=== PATIENT | female | born 1995 | race Asian ===

== ENCOUNTER 2017-09-12 19:55 | Emergency (ER) | payer BC ==
[2017-09-12] MEDS ORDERED: diazePAM 5 MG TAB PO ONE (20:12)
--- NOTE | 2017-09-12 20:16 | ED.PDOC ---
History of Present Illness - General Source: patient, RN notes reviewed, EMS notes reviewed Additional Information: Pt reports history of bipolar d/o. Pt reports a lot of stress recently. She had a reported seizure - first time ever per report. She said she still feels a little foggy but she is getting better. I did not appreciate a definite post- ictal appearance. Pt alert, oriented, in no distress. Pt with some mild tachycardia with HR around 105 bpm (improved compared to initial presentation with EMS - HR in the 140s for them). 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 Severity: moderate Improving Factors: rest Worsening Factors: nothing Associated Symptoms: denies symptoms <Daniel Fleming - Last Filed: 09/13/17 06:45> <Jovan Allan - Last Filed: 09/13/17 11:36> - General Chief Complaint: Neuro Symptoms/Deficits Stated Complaint: seizure and stress Time Seen by Provider: 09/12/17 20:12 - History of Present Illness Allergies/Adverse Reactions: Allergies Latex Allergy (Verified 09/12/17 20:12) Home Medications: Ambulatory Orders Lamotrigine [Lamictal] 25 mg PO DAILY 09/12/17 Cheney Carbonate 600 mg PO BID 09/12/17 Review of Systems - Review of Systems Constitutional: States: no symptoms reported EENTM: States: no symptoms reported Respiratory: States: no symptoms reported Cardiology: States: no symptoms reported Gastrointestinal/Abdominal: States: no symptoms reported Genitourinary: States: no symptoms reported Musculoskeletal: States: no symptoms reported Skin: States: no symptoms reported Neurological: States: see HPI, anxiety, depressed, emotional problems, seizure - per report. No status. Endocrine: States: no symptoms reported Hematologic/Lymphatic: States: no symptoms reported <Daniel Fleming - Last Filed: 09/13/17 06:45> Past Medical History (General) - Patient Medical History Hx Other PMH: Yes - BiPolar D/O <Daniel Fleming - Last Filed: 09/13/17 06:45> Family Medical History - Family History Mother Family History: Unknown Living Status: Unknown Hx Family;Other: Pt is adopted and has no knowledge of biological parents. 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 Nursing reports patient endorsed THC use recently. Will treat with one time dose of Valium 5 mg PO x 1 and observe for 30 to 45 minutes. If no repeat seizure like activity and labs WNL, will d/c home with return precautions. 09/12/17 22:03 While patient was waiting for lab results she asked for a friend to wait with her. She told her friends about her suicidal ideation and they let one of their parents know who let us know. SIMRAN Deluca spoke with patient - see nursing note for details. [facility] consult requested. 09/12/17 22:29 Father of patient - Juanito Ordoñez - asked to speak with me. I asked patient if I had permission to speak with him. She said yes. The father stated that he was under the impression that patient had a seizure, was given Valium, and that his daughter had made some suicidal and homicidal statements. He said that his daughter should be observed for 23 hours and that if she was discharged by me that "if anything happens to her you will never see a lawsuit like this will be ". I felt threatened by his comment and I ended the conversation with him. 09/13/17 06:01 Spoke with FOP - Juanito Ordoñez ([phone]) - to inform him that patient has been asleep since 2200, in no distress. I asked FOP when he would be here to picker packer his daughter. He said he was leaving now and it should be 6 hours from now when he arrives to picker packer his daughter. 09/13/17 06:45 Patient has been resting quietly all night. No evidence of seizure like activity during ER stay. [facility] note reviewed. Patient interviewed by me as well. She denies current SI/HI/plan. She is waiting for her family to pick her up. Care will be handed over to Dr. Allan at 0700. - Results/Orders Results/Orders: Laboratory Results - last 24 hr 09/12/17 09/12/17 09/12/17 20:12 20:12 20:13 WBC 13.7 H RBC 4.71 Hgb 13.4 Hct 41.5 MCV 88.0 MCH 28.5 MCHC 32.4 L RDW 13.9 Plt Count 331 MPV 8.6 Absolute Neuts (auto) 9.80 H Absolute Lymphs (auto) 2.90 Absolute Monos (auto) 0.80 Absolute Eos (auto) 0.20 Absolute Basos (auto) 0.00 Neutrophils % 71.7 Lymphocytes % 21.0 Monocytes % 5.7 Eosinophils % 1.3 Basophils % 0.3 Sodium 140 Potassium 3.4 L Chloride 103 Carbon Dioxide 18 L Anion Gap 22.4 H BUN 13 Creatinine 0.84 BUN/Creatinine Ratio 15.5 Random Glucose 145 H Serum Osmolality 282.1 Calcium 9.6 Total Bilirubin 0.4 AST 28 ALT 32 Alkaline Phosphatase 54 Serum Total Protein 8.4 H Albumin 5.0 Globulin 3.4 Albumin/Globulin Ratio 1.5 Serum HCG, Qual Negative 09/12/17 20:14 Temperature 99 F Pulse Rate [ 105 H Left Radial] Respiratory 18 Rate Blood Pressure 126/75 [Left Arm] O2 Sat by Pulse [address] Head: EXAM DESCRIPTION: Head CLINICAL HISTORY: reported first time seizure prior to arrival COMPARISON: None available TECHNIQUE: Axial CT of the head obtained from the skull apex to the skull base without contrast. FINDINGS: No acute intracranial hemorrhage identified. No mass, mass effect, shift of the midline, abnormal extra-axial fluid collection or CT evidence of acute ischemic change identified. The ventricular system is unremarkable. No acute abnormalities of the supratentorial white matter, basal ganglia, cerebellum, or brainstem. The visualized paranasal sinuses and the mastoids are clear. No skull fracture identified. Visualized orbits and globes are unremarkable. DLP:773.97 mGy-cm IMPRESSION: 1. No acute intracranial abnormality identified. <Noya,Daniel - Last Filed: 09/13/17 06:45> - Progress Progress: 09/13/17 11:35 The patient has been resting well. No evidence of any seizure activity. She has been cooperative. Family is here to pick her up. She should follow up with her primary care doctor in the coming week as well as her psychiatrist. She was given a dose of her Lamictal here prior to discharge. <Jovan Allan - Last Filed: 09/13/17 11:36> Departure <Daniel Fleming - Last Filed: 09/13/17 06:45> - Departure Diet: regular diet Activity: increase activity as tolerated <Jovan Allan - Last Filed: 09/13/17 11:36> - Departure Clinical Impression: Seizure, Suicidal ideation Bipolar disorder Qualifiers: Active/Remission status: currently active Current bipolar episode type: mixed Current episode severity: moderate Qualified Code(s): F31.62 - Bipolar disorder , current episode mixed, moderate Disposition: Discharge to Home or Self Care Condition: Fair Departure Forms: ED Discharge - Pt. Copy, Patient Portal Self Enrollment Instructions: DI for Bipolar Disorder Home Medications: Ambulatory Orders Lamotrigine [Lamictal] 25 mg PO DAILY 09/12/17 Cheney Carbonate 600 mg PO BID 09/12/17 Additional Instructions: follow-up with your primary care doctor and psychiatrist later this week. Return to the emergency room for any acute worsening.
[2017-09-12 20:20] VITALS: TEMP 99
--- NOTE | 2017-09-12 23:40 | CT ---
EXAM DESCRIPTION: Head CLINICAL HISTORY: reported first time seizure prior to arrival COMPARISON: None available TECHNIQUE: Axial CT of the head obtained from the skull apex to the skull base without contrast. FINDINGS: No acute intracranial hemorrhage identified. No mass, mass effect, shift of the midline, abnormal extra-axial fluid collection or CT evidence of acute ischemic change identified. The ventricular system is unremarkable. No acute abnormalities of the supratentorial white matter, basal ganglia, cerebellum, or brainstem. The visualized paranasal sinuses and the mastoids are clear. No skull fracture identified. Visualized orbits and globes are unremarkable. DLP:773.97 mGy-cm IMPRESSION: 1. No acute intracranial abnormality identified. This exam was performed according to our departmental dose-optimization program, which includes automated exposure control, adjustment of the mA and/or kV according to patient size and/or use of iterative reconstruction technique. Electronically signed by: Patrice Terrazas 09/12/2017 11:38 PM [facility]
[2017-09-13] MEDS ORDERED: diazePAM 5 MG TAB PO ONE (00:42)
[2017-09-13] MEDS: LITHIUM CARBONATE 150 MG CAP PO SCH ×2 (00:59→11:08)
[2017-09-13] MEDS ORDERED: lamoTRIgine 25 MG TAB PO SCH (11:00)
[2017-09-13 11:15] VITALS: BP 93/59; O2SAT 97
== END 2017-09-13 11:44 | disposition home or self-care (01) ==
LOC: ER 19:55
DX: R56.9 Unspecified convulsions (principal); R45.851 Suicidal ideations; F31.62 Bipolar disorder, current episode mixed, moderate; Z91.040 Latex allergy status